=== PATIENT | female | born 1940 | race Caucasian/White ===

== ENCOUNTER 2017-01-23 14:06 | Inpatient (IN) | payer OTHER ==
--- NOTE | 2017-01-23 14:28 | EDPHY ---
H & P Stated Complaint: starting at 1240 decreased responsiveness and fatigue Time Seen by Provider: 01/23/17 14:14 - Personal History Current Tetanus/Diphtheria Vaccine: Unsure - Medical/Surgical History Hx Chronic Respiratory Disease: Yes Hx Diabetes: Yes Hx Cardiac Disease: No Hx Renal Disease: No Hx Cirrhosis: No Hx Alcoholism: No Hx HIV/AIDS: No Hx Splenectomy or Spleen Trauma: No Other PMH: DM insulin dependent, COPD, osteoporosis. PSH: pancreas removed, choly, R hip surgery Constitutional: Initial Vital Signs Temperature (C) 36.6 C 01/23/17 14:16 Heart Rate 70 01/23/17 14:16 Respiratory Rate 20 01/23/17 14:16 Blood Pressure 175/75 H 01/23/17 14:16 O2 Sat (%) 96 01/23/17 14:16 O2 Delivery Mode Room Air Allergies/Adverse Reactions: fentanyl Allergy (Verified 01/23/17 14:16) Home Medications: Medication Instructions Recorded Flurbiprofen 0.03% [Ocufen 0.03%] 1 drop EACHEYE QID #1 bottle 01/23/17 Medical Decision Making - Diagnostics Imaging Results: Imaging Impressions Head CT 01/23/17 14:24 Impression: 1. No acute intracranial findings. If symptoms persist and clinical suspicion warrants, consider MRI. 2. Diffuse cerebral atrophy with periventricular and subcortical low attenuation consistent with chronic microvascular ischemic gliosis. Findings discussed with Mio Curiel MD 01/23/2017 at 15:43. Imaging: Discussed imaging studies w/ scallop binder Radiologist, I viewed and interpreted images myself ED Course/Re-evaluation: CHIEF COMPLAINT: AMS HISTORY OF PRESENT ILLNESS: The patient is a 76 y/o female arriving with her niece for altered mental status onset around 12:30, about 2 hours ago. She has a medical history that includes COPD and diabetes. She is visiting from [place] and arrived here on Tuesday. Her niece reports she is generally not very healthy, but has been doing well and came here to relax before her upcoming hip surgery in one month. This morning, the patient began to complain of double vision. She then had difficulty walking and with speech. Her niece gave her juice and sugar thinking she may have a BGL problem. Niece denies any symptoms of recent illness. The patient is unable to contribute to history due to AMS. REVIEW OF SYSTEMS: Unobtainable secondary to patient condition. PHYSICAL EXAM: HR, BP, O2 Sat, RR. Temp noted General Appearance: Somnolent and difficult to rouse, difficulty following commands, no obvious focal deficits. Head: Atraumatic without scalp tenderness or obvious injury Eyes: Pupils equal, round, reactive to light and accommodation, EOMI, no trauma , no injection. Ears: Clear bilaterally, no perforation, normal landmarks Nose: Atraumatic, no rhinorrhea, clear. Throat: There is no erythema or exudates, no lesions, normal tonsils, mucus membranes moist. Neck: Supple, non-tender, no lymphadenopathy. Respiratory: No retractions, no distress, no wheezes, and no accessory muscle use. Lungs are clear to auscultation bilaterally. Cardiovascular: Regular rate and rhythm, no murmurs, rubs, or gallops. Good capillary refill all extremities. Gastrointestinal: Abdomen is soft, non-tender, non-distended, no masses, no rebound, no guarding, no peritoneal signs. Musculoskeletal: Normal active ROM of all extremities, atraumatic. Neurological: Somnolent, has difficulty follow commands, no obvious focal deficits Skin: No rashes, good turgor, no nodules on palpation. PAST MEDICAL HISTORY: COPD, diabetes PAST SURGICAL HISTORY: "a lot of surgeries," right hip surgery, cholecystectomy , "no pancreas" SOCIAL HISTORY: Niece at bedside. Visiting from [place]. DIAGNOSTICS/PROCEDURES/CRITICAL CARE TIME: EKG: Sinus rhythm rate [address]: negative for acute process. DIFFERENTIAL DIAGNOSIS: The differential diagnosis for the patient's altered mental status included but was not limited to hypoglycemia, infectious process, electrolyte abnormality, head injury, neurologic process, anemia, cardiac process, and intoxicants. MEDICAL DECISION MAKING: This is a 76 y/o female with a history of diabetes and COPD who presents with a 2-hour history of altered mentation. She is not able to follow commands nor contribute to history. No obvious focal deficits or trauma. Her initial ISTAT BGL here is >350. Plan for insulin drip, IV, labs, EKG, and head CT. Patient has an elevated potassium that is likely due to hemolysis from difficult IV access. We have been unable to get access to her medication record from her pharmacy as family members cannot provide this information. BGL over 500. Head CT negative. 1552: Reassessed patient. She is snoring and not easy to rouse. Her vitals remain normal. I have no obvious cause for her symptoms as her head CT, EKG, and labs are unremarkable. I would not expect hyperglycemia to cause this mental state. There may be some sort of intoxicant on board. UA and urine tox is still pending. Patient will require admission. Spoke with hospitalist service. Dr. Bui accepts admission to step down unit. - Data Points Laboratory Results: Laboratory Results 01/23/17 14:48 01/23/17 14:48 01/23/17 01/23/17 01/23/17 14:48 14:48 14:44 WBC 7.15 10^3/uL 10^3/uL (3.80-9.50) RBC 4.93 10^6/uL 10^6/uL (4.18-5.33) Hgb 15.2 g/dL g/dL (12.6-16.3) POC Hgb 16.7 gm/dL H gm/dL (12.6-16.3) Hct 44.7 % % (38.0-47.0) POC Hct 49 % H % (38-47) MCV 90.7 fL fL (81.5-99.8) MCH 30.8 pg pg (27.9-34.1) MCHC 34.0 g/dL g/dL (32.4-36.7) RDW 16.0 % H % (11.5-15.2) Plt Count 273 10^3/uL 10^3/uL (150-400) MPV 9.9 fL fL (8.7-11.7) Neut % (Auto) 77.9 % H % (39.3-74.2) Lymph % (Auto) 15.0 % % (15.0-45.0) Maverick % (Auto) 5.9 % % (4.5-13.0) Eos % (Auto) 0.1 % L % (0.6-7.6) Baso % (Auto) 0.7 % % (0.3-1.7) Nucleat RBC Rel Count 0.0 % % (0.0-0.2) Absolute Neuts (auto) 5.57 10^3/uL 10^3/uL (1.70-6.50) Absolute Lymphs (auto) 1.07 10^3/uL 10^3/uL (1.00-3.00) Absolute Monos (auto) 0.42 10^3/uL 10^3/uL (0.30-0.80) Absolute Eos (auto) 0.01 10^3/uL L 10^3/uL (0.03-0.40) Absolute Basos (auto) 0.05 10^3/uL 10^3/uL (0.02-0.10) Absolute Nucleated RBC 0.00 10^3/uL 10^3/uL (0-0.01) Immature Gran % 0.4 % % (0.0-1.1) Immature Gran # 0.03 10^3/uL 10^3/uL (0.00-0.10) POC Sodium 136 mEq/L mEq/L (134-144) Sodium 134 mEq/L mEq/L (134-144) POC Potassium 5.5 mEq/L H mEq/L (3.3-5.0) Potassium 6.2 mEq/L H mEq/L (3.5-5.2) POC Chloride 105 mEq/L mEq/L (97-110) Chloride 105 mEq/L mEq/L (97-110) Carbon Dioxide 16 mEq/l L mEq/l (22-31) Anion Gap 13 mEq/L mEq/L (8-16) POC BUN 23 mg/dL mg/dL (7-23) BUN 20 mg/dL mg/dL (7-23) Creatinine 1.0 mg/dL mg/dL (0.6-1.0) POC Creatinine 1.0 mg/dL mg/dL (0.6-1.0) Estimated GFR 54 Glucose 514 mg/dL H* mg/dL (70-100) POC Glucose 472 mg/dL H mg/dL (70-100) Calcium 10.0 mg/dL mg/dL (8.5-10.4) Troponin I < 0.012 ng/mL ng/mL (0.000-0.034) Beta-Hydroxybutyrate 0.76 mmol/L H mmol/L (0.02-0.27) Specimen Hemolysis 198 Medications Given: Insulin Human Regular 100 unit / Miscellaneous Medication 1 ea/ Sodium Chloride 101 mls @ 6 mls/hr IV EDNOW ONE PRN Reason: Protocol Stop: 01/24/17 07:57 Last Admin: 01/23/17 15:43 Dose: 101 mls Discontinued Medications Sodium Chloride (Ns) 1,000 mls @ 0 mls/hr IV ONCE ONE; Wide Open PRN Reason: Protocol Stop: 01/23/17 15:09 Last Admin: 01/23/17 15:29 Dose: 1,000 mls Insulin Human Regular (Humulin R) 10 unit IVP EDNOW ONE Stop: 01/23/17 15:09 Last Admin: 01/23/17 15:30 Dose: 10 units Point of Care Test Results: 01/23/17 14:44 POC Sodium 136 POC Potassium 5.5 H POC Chloride 105 POC BUN 23 POC Creatinine 1.0 POC Glucose 472 H Departure - Departure Disposition: [facility] Inpatient Acute Clinical Impression: Hyperglycemia Altered mental status Qualifiers: Altered mental status type: somnolence Qualified Code(s): R40.0 - Somnolence Condition: Fair Referrals: JACKI,UNKNOWN [Other] - As per Instructions Prescriptions: Flurbiprofen 0.03% [Ocufen 0.03%] 1 drop EACHEYE QID #1 bottle Report Scribed for: Mio Curiel Report Scribed by: Florencia Shepherd Date of Report: 01/23/17 Time of Report: 14:28
[2017-01-23 14:59] LABS: % IMMATURE GRANULYOCYTES 0.4 % (0.0-1.1); ABSOLUTE IMMATURE GRANULOCYTES 0.03 10^3/uL (0.00-0.10); ADD DIFF? NO; ADD MORPH? NO; ADD SCAN? NO; ATYPICAL LYMPHOCYTE FLAG 0 (0-99); FRAGMENT RBC FLAG 0 (0-99); HEMATOCRIT 44.7 % (38.0-47.0); HEMOGLOBIN 15.2 g/dL (12.6-16.3); LEFT SHIFT FLG 0 (0-99); LIPEMIA HEMOLYSIS FLAG 90 (0-99); MEAN CELL HEMOGLOBIN 30.8 pg (27.9-34.1); MEAN CELL VOLUME 90.7 fL (81.5-99.8); MEAN PLATELET VOLUME 9.9 fL (8.7-11.7); PLATELET CLUMPS FLAG 0 (0-99); PLATELET COUNT 273 10^3/uL (150-400); RED BLOOD CELL COUNT 4.93 10^6/uL (4.18-5.33)
--- NOTE | 2017-01-23 15:01 | CPEKG ---
Heart Rate: 55 RR Interval: 1091 P-R Interval: 208 QRSD Interval: 90 QT Interval: 444 QTC Interval: 425 P [place]: 82 QRS [place]: 5 T Wave [place]: 35 EKG Severity - NORMAL ECG - EKG Impression: SINUS RHYTHM Electronically Signed By: Mio Curiel 23-Jan-2017 18:19:15
[2017-01-23] MEDS ORDERED: NS 1,000 ML IV ONE (15:08)
[2017-01-23] MEDS ORDERED: INSULIN REGULAR HUMAN 100 UNIT/ML IVP ONE (15:08)
[2017-01-23] MEDS ORDERED: INSULIN REGULAR HUMAN 100 UNIT, COSIGN. REQUIRED 1 EA in NS 100 ML IV ONE (15:08)
[2017-01-23 15:32] LABS: TROPONIN I < 0.012 ng/mL (0.000-0.034)
[2017-01-23 15:39] LABS: ANION GAP 13 mEq/L (8-16); CARBON DIOXIDE 16 mEq/l (22-31); CHLORIDE 105 mEq/L (97-110); POTASSIUM 6.2 mEq/L (3.5-5.2); SODIUM 134 mEq/L (134-144); SPECIMEN HEMOLYSIS 198
[2017-01-23 15:40] LABS: GLOMERULAR FILTRATION RATE 54
[2017-01-23 15:41] LABS: GLUCOSE 514 mg/dL (70-100)
[2017-01-23 15:43] LABS: B-HYDROXYBUTYRATE 0.76 mmol/L (0.02-0.27)
[2017-01-23 16:29] LABS: COLOR YELLOW; LEUKOCYTE ESTERASE,URINE NEGATIVE (NEGATIVE); NITRITE,URINE NEGATIVE (NEGATIVE)
[2017-01-23] MEDS ORDERED: D50W 25 GM/50 ML SYR IVP PRN (16:44)
[2017-01-23] MEDS ORDERED: NS 1,000 ML IV SCH (16:45)
[2017-01-23] MEDS ORDERED: ALTEPLASE 2 MG VIAL IVP PRN (17:58)
[2017-01-23] MEDS ORDERED: ACETAMINOPHEN 325 MG TAB PO PRN (17:59)
[2017-01-23] MEDS ORDERED: HYDROmorphONE/DILAUDID 1 MG/ML INJ IVP PRN (17:59)
[2017-01-23] MEDS: INSULIN LISPRO 100 UNIT/ML SC SCH (18:43)
[2017-01-23 18:48] LABS: ALBUMIN 2.5 g/dL (3.5-5.0); BILIRUBIN,TOTAL 0.4 mg/dL (0.1-1.4); BILIRUBIN-CONJUGATED 0.3 mg/dL (0.0-0.5); BILIRUBIN-UNCONJUGATED 0.1 mg/dL (0.0-1.1); TOTAL PROTEIN 4.6 g/dL (6.3-8.2)
[2017-01-23] MEDS ORDERED: ACETAMINOPHEN 650 MG SUPP PR PRN (19:09)
[2017-01-23] MEDS ORDERED: NALOXONE HCL 0.4 MG/ML INJ IVP PRN (19:09)
[2017-01-23 19:54] LABS: BASE EXCESS -6.3 mEq/L (-2.5-2.5); BICARBONATE 19 mEq/L (22-26); MEASURED OXYGEN SATURATION 97 % (92-95); PCO2 37 mmHg (34-38); PO2 95 mmHg (65-75); TCO2 20 mEq/L (23-27)
[2017-01-23] MEDS ORDERED: D10W 250 ML PRN HYPOGLYCEMIA IV (20:30)
--- NOTE | 2017-01-23 21:45 | GHP ---
[f rep st] HISTORY AND PHYSICAL DATE OF ADMISSION: 01/23/2017 CHIEF COMPLAINT: Altered mental status. HISTORY: This is a 76-year-old female currently visiting from [place], brought in by family aft er she was found to be unresponsive. Patient has a history that includes type 1 diabetes, occurring status post a partial pancreatectomy, as well as COPD and recurrent pneumonia. According to family, she was in her usual state of health, which is noted to be always somewhat poor. She is here visitin suzy marks niece and yesterday apparently had a very good day walking all around town without any issues. T his morning, she was noted to be a little bit tired and niece left to do some errands and when she re turned, patient was found to be quite somnolent on the couch. Niece attempted to waken her and had d ifficulty. Niece was able to check oxygen at home and it was found to be 95%. She did attempt to ch luigi her blood sugar at home, but continued to get an error message. At that point, she made a decisi on to bring her to the hospital. On arrival in the ER, she was found to be significantly obtunded an d essentially unresponsive. Blood sugar on arrival was in the 500 range. At the time of my evaluati on, patient has snoring respirations and is responding only to painful stimuli. Niece was present at the bedside and I was able to speak to patient's son over the phone in order to obtain the majority of this history. PAST MEDICAL HISTORY: 1. Type 1 diabetes on chronic insulin. 2. Chronic pain with continuous narcotic use and dependency. 3. COPD. 4. Malnutrition. 5. History of steroid induced psychosis. PAST SURGICAL HISTORY: Pancreatectomy. FAMILY HISTORY: Unremarkable per family. SOCIAL HISTORY: Patient is a current daily tobacco user and has likely 50+ pack-year smoking history . No significant alcohol or drug use per family other than prescription drugs. Son does not believe that she has ever intentionally abused her prescription drugs, but does believe that she has had iss ues with inadvertently taking too many of them in the past. REVIEW OF SYSTEMS: Unobtainable secondary to patient's mental status. HOME MEDICATIONS: This list needs to be confirmed but includes: 1. Ventolin. 2. Lyrica. 3. Xanax. 4. Pancreatic enzymes. 5. Insulin. 6. Dilaudid. 7. Zofran. 8. Losartan. 9. Trazodone. 10. Pravastatin. 11. Mirtazapine. ALLERGIES: Fentanyl. PHYSICAL EXAMINATION: VITAL SIGNS: Bp 116/44, heart rate 59, respiratory rate 16, O2 sats 99% on 2 L . GENERAL APPEARANCE: This is a chronically ill-appearing female. She is unarousable. She has sno ring respirations. EYES: Anicteric. Pupils are constricted, equal and reactive to light. Orophary nx was clear. Mucous membranes are tacky. HEART: Sounds are regular without murmurs, rubs, or almonte ps. LUNGS: Sound clear, though she does again have some snoring respirations present. ABDOMEN: So ft, nontender, nondistended. EXTREMITIES: Without clubbing, cyanosis or edema. SKIN: Warm, dry, well perfused. NEURO/PSYCH: Kg lara is largely unarousable, though she will withdraw to pain. She was noted to be moving spontaneo usly on occasion as well. CLINICAL DATA: White blood cell count of 7, hematocrit 44.7, platelets of 273. Blood gas with a pH of 7.3, pCO2 of 20, pO2 of 95, potassium initially at 6.2, but this was a hemolyzed sample. Glucose at 514, later trended down to 64. Serum osmolality at 300. LFTs remarkable only for a total protein of 4.6, and an albumin of 2.5, initial beta hydroxybutyrate of 0.76, initial troponin is less than 0 .012. Troponin showing 1+ ketones and U-tox showing benzodiazepines. Head CT: Personally reviewed and interpreted, shows no acute intracranial findings. Chest x-ray: Personally reviewed and interpr eted, shows nothing acute. There is a central line in place. EKG, personally reviewed and interpreted, shows sinus rhythm. ASSESSMENT AND PLAN: This is a 76-year-old female, currently visiting from out of town, past medical history of diabetes, chronic obstructive pulmonary disease and recurrent pneumonia presenting with a cute encephalopathy. 1. Acute encephalopathy. At this point, somewhat unclear what led to her current state. Head CT is unremarkable. Labs are not overly impressive in terms of a metabolic derangement. Nothing obvious in terms of an infectious workup. She did present with significantly elevated glucose in considerati on for HHS, but her glucoses have corrected rapidly and she does not show any signs of improvement. Another consideration would be for inadvertent drug overdose, especially in the setting of polypharma cy and multiple sedating medications on board including benzos, Lyrica, mirtazapine, trazodone and Di laudid. Will give a trial of Narcan to see if this improves her mental status at all. She is protec ting her airway and is being monitored in ICU. 2. Hyperosmolar hyperglycemic state. Patient presenting with a plasma osmolality of 300 and a signi ficantly elevated glucose of 500. Again, this could be contributing to her mental status changes alt gurpreet her mental status is not improving despite improved glucoses. Patient has been started on insu diego drip, though this has been put on hold due to most recent hypoglycemia. Will likely treat from h ere on out with subcu insulin as needed. 3. Chronic pain with continuous narcotic use and dependency. The patient is on Dilaudid 4 mg 4 time s a day at home. Again, unclear if patient had inadvertent overdose or simply polypharmacy related e vent. For now, will hold centrally acting medications as we are able. I suspect she will need to be resumed on her pain medications, etc., soon or will experience withdrawal. Will provide Ativan p.r. n. agitation, although currently she is not requiring it. 4. Chronic obstructive pulmonary disease. Per family, she is not chronically on oxygen. She has monteiro d issues with recurrent pneumonia. Currently lungs sound clear and nothing significant noted on x-ra y. Will repeat x-ray in the morning in case something is blossoming. Holding off on antibiotics for the time being. She has not had significant CO2 retention by blood gas. 5. Malnutrition. Patient has a BMI of 20. Per family, she has had issues with weight loss and poor p.o. intake. Will ask for a dietary consult. She is n.p.o. for now pending improvement of her ment al status, however. 6. Disposition, inpatient status. Patient is high risk requiring ICU level care. Patient is new to my care. Old records reviewed. Summary is as per HPI and past medical history. C are plan reviewed with patient's niece, present at bedside, and the patient's son over the phone. Greater than 60 minutes of critical care time were spent in addition to usual admission time. This w as spent in reviewing labs, imaging, and creating treatment plan and conferring with ER doc. /[id number]/MODL
[2017-01-24 02:14] LABS: HEMOGLOBIN A1C 8.7 % (4.0-6.0)
[2017-01-24] MEDS: LORazepam 2 MG/ML INJ IVP PRN ×3 (02:47→17:34)
[2017-01-24 04:44] LABS: % IMMATURE GRANULYOCYTES 0.4 % (0.0-1.1); ABSOLUTE IMMATURE GRANULOCYTES 0.03 10^3/uL (0.00-0.10); ADD DIFF? NO; ADD MORPH? NO; ADD SCAN? YES; ATYPICAL LYMPHOCYTE FLAG 0 (0-99); FRAGMENT RBC FLAG 0 (0-99); HEMATOCRIT 42.2 % (38.0-47.0); HEMOGLOBIN 14.3 g/dL (12.6-16.3); LEFT SHIFT FLG 0 (0-99); LIPEMIA HEMOLYSIS FLAG 90 (0-99); MEAN CELL HEMOGLOBIN 30.2 pg (27.9-34.1); MEAN CELL HEMOGLOBIN CONCENTR. 33.9 g/dL (32.4-36.7); MEAN PLATELET VOLUME 9.8 fL (8.7-11.7); PLATELET COUNT 221 10^3/uL (150-400); RED BLOOD CELL COUNT 4.74 10^6/uL (4.18-5.33); RED CELL DISTRIBUTION WIDTH 15.7 % (11.5-15.2)
[2017-01-24 04:53] LABS: PLATELET CLUMPS FLAG 100 (0-99)
[2017-01-24 04:58] LABS: ANION GAP 12 mEq/L (8-16); CALCIUM 9.3 mg/dL (8.5-10.4); CARBON DIOXIDE 16 mEq/l (22-31); CHLORIDE 110 mEq/L (97-110); CREATININE 0.8 mg/dL (0.6-1.0); GLOMERULAR FILTRATION RATE > 60; GLUCOSE 255 mg/dL (70-100); MAGNESIUM 1.8 mg/dL (1.6-2.3); POTASSIUM 3.7 mEq/L (3.5-5.2); SODIUM 138 mEq/L (134-144)
[2017-01-24 05:42] LABS: SCAN NEGATIVE
[2017-01-24] MEDS: INSULIN LISPRO 100 UNIT/ML SC SCH ×3 (06:39→19:33)
--- NOTE | 2017-01-24 08:21 | WOCRNPDOC ---
[facility] Advanced Assessment Note - Skin Integrity Problem, Advanced Assess Coccyx Pressure Injury Dressing Type: Allevyn Life Integumentary Issue Intervention: Visualized Under Dressing Wound Bed Constitution: Healed Skin Integrity Problem Comment: No erythema noted. No pressure injury present. Left Elbow Scab Dressing Type: Allevyn Life Dressing Description: Clean/Dry, Intact Exudate Amount: Scant Exudate Characteristic(s): Sanguinous Integumentary Issue Intervention: Visualized Under Dressing Wound Bed Constitution: Unstable Eschar Site Measurement - Head-to-Toe Length X Width X Depth (cm): 0.9x0.6x0.1 Pressure Injury Stage: Unstageable Skin Integrity Problem Comment: Older wound of unclear etiology but may be mixed and/or purely pressure related due to location over olecranon process. Wound mirrors wound on right lateral malleolus in that it is dried out and necrotic and approximatly the same age. Will treat with wound gel and allevyn life. Will round again late this week/early next week. Right Ankle Pressure Injury Dressing Type: Allevyn Life Dressing Description: Clean/Dry, Intact Exudate Amount: Scant Exudate Characteristic(s): Sanguinopurulent Integumentary Issue Intervention: Visualized Under Dressing Site Measurement - Head-to-Toe Length X Width X Depth (cm): 0.9x0.9x0.2 Pressure Injury Stage: Unstageable Pressure Injury Present on Admit: Yes Skin Integrity Problem Comment: A identical wound on left ankle is healed and has scar tissue. This wound is too dry thereby necrosing. Will recheck at end of week/early next week. ADALID Napier in room for consult.
[2017-01-24] MEDS: ENOXAPARIN 40 MG/0.4 ML SYR SC SCH (08:56)
--- NOTE | 2017-01-24 10:50 | PDMN ---
Medical Necessity Medical necessity: Patient meets INPT criteria per physician note and MCG Systemic or Infectious Condition GRG - (acute encephalopathy: found unresponsive by family; hyperosmolar hyperglycemia: BG 500/plasma osmolality 300 ; chronic pain w/cont narcotic use/dependency/poss unintentional OD; hx Type I DM, COPD, recurrent pneumonia, s/p partial pancreatectomy; anticipated LOS > 2 midnights for ICU monitoring, IV hydration, Narcan trial, further eval and care.)
--- NOTE | 2017-01-24 11:46 | ASMTCMCOM ---
CM Note CM Note Notes: 76 year old female [place] visiting niece in [place], admitted for AMS, Hyperglycemia. Patient has a hx of DM-1, Chronic pain-narc dependent, COPD, Malnutrition. Concern that patient might have taken too many or confused medications and became unresponsive which then lead to her admission. CM to follow for discharge needs. Date Signed: 01/24/2017 11:46 AM Electronically Signed By:Venice Gonzalez LCSW
[2017-01-24] MEDS ORDERED: LIPASE 12,000/AMYLASE/PROTEASE (CREON) 1 CAP PO PRN (16:01)
--- NOTE | 2017-01-24 16:07 | HOSPPROG ---
Hospitalist Progress Note Assessment/Plan: * Metabolic encephalopathy -medical work-up unremarkable -suspect med effect - hold all sedating meds -minimal improvement - check MRI brain -? benzo withdrawal * DM 1 -resume long acting insulin + SSI * Pancreatic insufficiency s/p pancreatectomy -restart enzymes when taking PO * COPD with ongoing tobacco dependence * Chronic pain with continuous narcotic dependency Subjective: Still very confused, hallucinating Objective: Vital Signs Temp Pulse Resp BP Pulse Ox 36.7 C 53 L 20 135/53 H 99 01/24/17 11:33 01/24/17 11:33 01/24/17 11:33 01/24/17 11:33 01/24/17 11:33 Laboratory Results 01/24/17 04:30 01/24/17 04:30 01/23/17 01/24/17 01/25/17 05:59 05:59 05:59 Intake Total 1826 1375 Output Total 875 250 Balance 951 1125 I spoke with her PCP in [place] Dr Kwan Gayle - he gave her Diamox for altitude prior to travel - Time Spent With Patient Time Spent with Patient: greater than 35 minutes Time Spent with Patient: Greater than 35 minutes spent on this patients care, greater than 50% of time spent counseling, educating, and coordinating care regarding the above mentioned plan. - Physical Exam Constitutional: no apparent distress, appears nourished, not in pain Cardiovascular: regular rate and rhythym, no murmur, rub, or gallop Respiratory: no respiratory distress, no rales or rhonchi, clear to auscultation Gastrointestinal: normoactive bowel sounds, soft, non-tender abdomen, no palpable masses Skin: no rashes or abrasions, no fluctuance, no induration Neurologic: No AAOx3 Psychiatric: encephalopathic, agitated, poor insight, poor judgement, poor memory ICD10 Worksheet Patient Problems: Problems Problem Status Onset Altered mental status Acute Hyperglycemia Acute
[2017-01-24] MEDS ORDERED: ALPRAZolam 0.25 MG TAB PO PRN (16:08)
[2017-01-24] MEDS ORDERED: INSULIN GLARGINE HUM REC ANLOG 20 UNIT SQ SCH (16:15)
[2017-01-24] MEDS: LIPASE 12,000/AMYLASE/PROTEASE (CREON) 1 CAP PO SCH (19:33)
[2017-01-25] MEDS ORDERED: INSULIN LISPRO 100 UNIT/ML SC ONE (00:12)
[2017-01-25 04:52] LABS: % IMMATURE GRANULYOCYTES 0.6 % (0.0-1.1); ABSOLUTE IMMATURE GRANULOCYTES 0.08 10^3/uL (0.00-0.10); ADD DIFF? NO; ADD MORPH? NO; ADD SCAN? NO; ATYPICAL LYMPHOCYTE FLAG 0 (0-99); FRAGMENT RBC FLAG 0 (0-99); HEMATOCRIT 37.2 % (38.0-47.0); HEMOGLOBIN 12.7 g/dL (12.6-16.3); LEFT SHIFT FLG 0 (0-99); LIPEMIA HEMOLYSIS FLAG 90 (0-99); MEAN CELL HEMOGLOBIN 30.3 pg (27.9-34.1); MEAN CELL HEMOGLOBIN CONCENTR. 34.1 g/dL (32.4-36.7); MEAN CELL VOLUME 88.8 fL (81.5-99.8); MEAN PLATELET VOLUME 9.4 fL (8.7-11.7); PLATELET CLUMPS FLAG 10 (0-99); PLATELET COUNT 239 10^3/uL (150-400); RED BLOOD CELL COUNT 4.19 10^6/uL (4.18-5.33); RED CELL DISTRIBUTION WIDTH 15.6 % (11.5-15.2)
[2017-01-25 04:56] LABS: ANION GAP 13 mEq/L (8-16); CALCIUM 8.1 mg/dL (8.5-10.4); CARBON DIOXIDE 13 mEq/l (22-31); CHLORIDE 120 mEq/L (97-110); CREATININE 0.8 mg/dL (0.6-1.0); GLOMERULAR FILTRATION RATE > 60; GLUCOSE 184 mg/dL (70-100); SODIUM 146 mEq/L (134-144)
[2017-01-25] MEDS: ONDANSETRON 4 MG/2 ML VIAL IVP PRN (05:55)
[2017-01-25] MEDS: LOSARTAN POTASSIUM 50 MG TAB PO SCH ×2 (08:03→10:47)
[2017-01-25] MEDS: CALCITRIOL 0.25 MCG CAP PO SCH ×2 (08:03→10:46)
[2017-01-25] MEDS: LIPASE 12,000/AMYLASE/PROTEASE (CREON) 1 CAP PO SCH ×3 (08:03→18:15)
[2017-01-25] MEDS: PRAVASTATIN SODIUM 20 MG TAB PO SCH ×2 (08:03→10:46)
[2017-01-25] MEDS ORDERED: PROTOCOL POTASSIUM 1 DOSE MISC PRN (08:54)
[2017-01-25] MEDS: Umeclidinium Brm/Vilanterol Tr [Anoro Ellipta 62.5-25 Mcg Inh IH SCH (08:57)
[2017-01-25] MEDS: ENOXAPARIN 40 MG/0.4 ML SYR SC SCH (10:41)
[2017-01-25] MEDS: INSULIN GLARGINE 100 UNIT/ML VIAL SC SCH (10:41)
[2017-01-25] MEDS: INSULIN LISPRO 100 UNIT/ML SC SCH ×4 (10:43→20:46)
[2017-01-25] MEDS ORDERED: POTASSIUM CL 10 MEQ TAB PO ONE ×3 (12:01→20:20)
--- NOTE | 2017-01-25 13:58 | HOSPPROG ---
Hospitalist Progress Note Assessment/Plan: * C Diff -start PO Vanco * Metabolic encephalopathy - due to infection -improved * DM 1 -resume Lantus * Pancreatic insufficiency s/p pancreatectomy -restart enzymes * COPD with ongoing tobacco dependence * Chronic pain with continuous narcotic dependency -resume home med regimen Subjective: c/o upset stomach. Confused Objective: Vital Signs Temp Pulse Resp BP Pulse Ox 36.8 C 50 L 16 154/62 H 97 01/25/17 11:56 01/25/17 11:56 01/25/17 07:35 01/25/17 11:56 01/25/17 11:56 Microbiology 01/24/17 15:45 Gastrointestinal Tract Panel (PCR) - Final Stool Clostridium Difficile Detected Laboratory Results 01/25/17 04:35 01/25/17 04:35 01/24/17 01/25/17 01/26/17 05:59 05:59 05:59 Intake Total 1826 1375 1636 Output Total 875 279 102 Balance 951 1096 1534 MRI brain - negative - Physical Exam Constitutional: no apparent distress, appears nourished, not in pain Cardiovascular: regular rate and rhythym, no murmur, rub, or gallop Respiratory: no respiratory distress, no rales or rhonchi, clear to auscultation Gastrointestinal: normoactive bowel sounds, soft, non-tender abdomen, no palpable masses Skin: no rashes or abrasions, no fluctuance, no induration Neurologic: No AAOx3 Psychiatric: interacting appropriately (much improved overall, makes sense even though she gets off track), encephalopathic, poor insight, poor judgement, poor memory, No agitated ICD10 Worksheet Patient Problems: Problems Problem Status Onset Altered mental status Acute Clostridium difficile infection Acute ~01/24/17 Hyperglycemia Acute
[2017-01-25] MEDS ORDERED: INSULIN GLARGINE 100 UNITS/ML SYRINGE SC ONE (16:06)
[2017-01-25] MEDS: VANCOMYCIN 125 MG/2.5 ML UDL PO SCH ×2 (16:22→20:29)
[2017-01-25] MEDS: ALBUTEROL 60 PUFFS/8 GM MDI IH PRN (17:16)
[2017-01-25] MEDS: HYDROmorphONE/DILAUDID 4 MG TAB PO PRN (17:18)
[2017-01-25 17:54] LABS: POTASSIUM 3.3 mEq/L (3.5-5.2)
[2017-01-26] MEDS: hydrALAZINE 20 MG/ML VIAL IVP PRN ×2 (04:46→12:12)
[2017-01-26] MEDS: VANCOMYCIN 125 MG/2.5 ML UDL PO SCH ×4 (04:52→21:32)
[2017-01-26 05:01] LABS: % IMMATURE GRANULYOCYTES 0.3 % (0.0-1.1); ABSOLUTE IMMATURE GRANULOCYTES 0.04 10^3/uL (0.00-0.10); ADD DIFF? NO; ADD MORPH? NO; ADD SCAN? NO; ATYPICAL LYMPHOCYTE FLAG 0 (0-99); FRAGMENT RBC FLAG 0 (0-99); HEMATOCRIT 35.6 % (38.0-47.0); HEMOGLOBIN 12.5 g/dL (12.6-16.3); LEFT SHIFT FLG 0 (0-99); LIPEMIA HEMOLYSIS FLAG 90 (0-99); MEAN CELL HEMOGLOBIN 30.4 pg (27.9-34.1); MEAN CELL HEMOGLOBIN CONCENTR. 35.1 g/dL (32.4-36.7); MEAN CELL VOLUME 86.6 fL (81.5-99.8); MEAN PLATELET VOLUME 9.7 fL (8.7-11.7); PLATELET CLUMPS FLAG 0 (0-99); PLATELET COUNT 206 10^3/uL (150-400); RED BLOOD CELL COUNT 4.11 10^6/uL (4.18-5.33); RED CELL DISTRIBUTION WIDTH 15.4 % (11.5-15.2)
[2017-01-26 05:22] LABS: ANION GAP 10 mEq/L (8-16); CALCIUM 7.9 mg/dL (8.5-10.4); CARBON DIOXIDE 18 mEq/l (22-31); CHLORIDE 118 mEq/L (97-110); CREATININE 0.7 mg/dL (0.6-1.0); GLOMERULAR FILTRATION RATE > 60; GLUCOSE 113 mg/dL (70-100); POTASSIUM 3.3 mEq/L (3.5-5.2); SODIUM 146 mEq/L (134-144)
[2017-01-26] MEDS: INSULIN LISPRO 100 UNIT/ML SC SCH ×4 (08:12→21:26)
[2017-01-26] MEDS: Umeclidinium Brm/Vilanterol Tr [Anoro Ellipta 62.5-25 Mcg Inh IH SCH (09:44)
[2017-01-26] MEDS ORDERED: POTASSIUM CL 10 MEQ TAB PO ONE ×2 (09:52→20:50)
[2017-01-26] MEDS: ENOXAPARIN 40 MG/0.4 ML SYR SC SCH (10:16)
[2017-01-26] MEDS: ONDANSETRON 4 MG/2 ML VIAL IVP PRN ×2 (10:16→15:55)
[2017-01-26] MEDS: HYDROmorphONE/DILAUDID 4 MG TAB PO PRN (10:21)
[2017-01-26] MEDS: LIPASE 12,000/AMYLASE/PROTEASE (CREON) 1 CAP PO SCH ×3 (10:28→17:22)
[2017-01-26] MEDS: CALCITRIOL 0.25 MCG CAP PO SCH (10:28)
[2017-01-26] MEDS: MIRTAZAPINE 15 MG TAB PO SCH (10:29)
[2017-01-26] MEDS: PRAVASTATIN SODIUM 20 MG TAB PO SCH (10:29)
[2017-01-26] MEDS: LOSARTAN POTASSIUM 50 MG TAB PO SCH (10:29)
[2017-01-26] MEDS: PROMETHAZINE HCL 25 MG/ML INJ IVP PRN (12:12)
[2017-01-26] MEDS: INSULIN GLARGINE 100 UNIT/ML VIAL SC SCH (12:16)
--- NOTE | 2017-01-26 14:10 | HOSPPROG ---
Hospitalist Progress Note Assessment/Plan: * C Diff -PO Vanco * Metabolic encephalopathy - due to infection -improving slowly * DM 1 -Lantus * Pancreatic insufficiency s/p pancreatectomy -Creon with meals * COPD with ongoing tobacco dependence * Chronic pain with continuous narcotic dependency -resume home meds * Hypernatremia -restart IVF -encourage PO fluids Subjective: 3 BM overnight, doesnt feel well Objective: Vital Signs Temp Pulse Resp BP Pulse Ox 37.2 C 56 L 16 181/60 H 95 01/26/17 12:00 01/26/17 12:00 01/26/17 12:00 01/26/17 12:12 01/26/17 12:00 Laboratory Results 01/26/17 04:45 01/26/17 04:45 01/25/17 01/26/17 01/27/17 05:59 05:59 05:59 Intake Total 1375 2736 500 Output Total 279 252 Balance 1096 2484 500 - Physical Exam Constitutional: no apparent distress, appears nourished, not in pain Cardiovascular: regular rate and rhythym, no murmur, rub, or gallop Respiratory: no respiratory distress, no rales or rhonchi, clear to auscultation Gastrointestinal: normoactive bowel sounds, soft, non-tender abdomen, no palpable masses Skin: no rashes or abrasions, no fluctuance, no induration Neurologic: weakness, No AAOx3 Psychiatric: encephalopathic, poor insight, poor judgement, poor memory, No interacting appropriately, No agitated ICD10 Worksheet Patient Problems: Problems Problem Status Onset Altered mental status Acute Clostridium difficile infection Acute ~01/24/17 Hyperglycemia Acute
[2017-01-26] MEDS ORDERED: 1/2 NS 1,000 ML IV SCH (14:15)
--- NOTE | 2017-01-26 15:53 | ASMTCMCOM ---
CM Note CM Note Notes: Spoke w/RN, pt not feeling well, has Cdiff and some mild confusion. CM to speak w/niece Zara [phone] about POC, still a few days out from [place], RICARDO w/f. Date Signed: 01/26/2017 03:52 PM Electronically Signed By:Romy Pizano RN
[2017-01-26] MEDS: D5W 1/2 NS 1,000 ML IV SCH (18:46)
[2017-01-27] MEDS: PREGABALIN 75 MG CAP PO PRN ×2 (05:10→19:53)
[2017-01-27] MEDS: VANCOMYCIN 125 MG/2.5 ML UDL PO SCH ×4 (05:10→19:53)
[2017-01-27 06:03] LABS: % IMMATURE GRANULYOCYTES 0.4 % (0.0-1.1); ABSOLUTE IMMATURE GRANULOCYTES 0.04 10^3/uL (0.00-0.10); ADD DIFF? NO; ADD MORPH? NO; ADD SCAN? NO; ATYPICAL LYMPHOCYTE FLAG 10 (0-99); FRAGMENT RBC FLAG 0 (0-99); HEMATOCRIT 36.5 % (38.0-47.0); HEMOGLOBIN 13.3 g/dL (12.6-16.3); LEFT SHIFT FLG 0 (0-99); LIPEMIA HEMOLYSIS FLAG 90 (0-99); MEAN CELL HEMOGLOBIN 30.9 pg (27.9-34.1); MEAN CELL HEMOGLOBIN CONCENTR. 36.4 g/dL (32.4-36.7); MEAN CELL VOLUME 84.7 fL (81.5-99.8); MEAN PLATELET VOLUME 9.6 fL (8.7-11.7); PLATELET CLUMPS FLAG 10 (0-99); PLATELET COUNT 176 10^3/uL (150-400); RED BLOOD CELL COUNT 4.31 10^6/uL (4.18-5.33); RED CELL DISTRIBUTION WIDTH 15.5 % (11.5-15.2)
[2017-01-27 06:22] LABS: ANION GAP 8 mEq/L (8-16); CALCIUM 7.6 mg/dL (8.5-10.4); CARBON DIOXIDE 21 mEq/l (22-31); CHLORIDE 112 mEq/L (97-110); CREATININE 0.6 mg/dL (0.6-1.0); GLOMERULAR FILTRATION RATE > 60; GLUCOSE 160 mg/dL (70-100); POTASSIUM 3.3 mEq/L (3.5-5.2); SODIUM 141 mEq/L (134-144)
[2017-01-27] MEDS ORDERED: POTASSIUM CL 10 MEQ TAB PO ONE ×3 (06:57→21:08)
[2017-01-27] MEDS: LIPASE 12,000/AMYLASE/PROTEASE (CREON) 1 CAP PO SCH ×3 (08:01→17:22)
[2017-01-27] MEDS: LOSARTAN POTASSIUM 50 MG TAB PO SCH (08:02)
[2017-01-27] MEDS: ENOXAPARIN 40 MG/0.4 ML SYR SC SCH (08:02)
[2017-01-27] MEDS: CALCITRIOL 0.25 MCG CAP PO SCH (08:02)
[2017-01-27] MEDS: MIRTAZAPINE 15 MG TAB PO SCH (08:05)
[2017-01-27] MEDS: PRAVASTATIN SODIUM 20 MG TAB PO SCH (08:06)
[2017-01-27] MEDS: INSULIN LISPRO 100 UNIT/ML SC SCH ×4 (08:20→22:31)
[2017-01-27] MEDS: INSULIN GLARGINE 100 UNIT/ML VIAL SC SCH (08:50)
[2017-01-27] MEDS: ONDANSETRON 4 MG/2 ML VIAL IVP PRN (09:02)
[2017-01-27] MEDS: D5W 1/2 NS 1,000 ML IV SCH (09:04)
[2017-01-27] MEDS: ALBUTEROL 60 PUFFS/8 GM MDI IH PRN (09:25)
[2017-01-27] MEDS: Umeclidinium Brm/Vilanterol Tr [Anoro Ellipta 62.5-25 Mcg Inh IH SCH (09:25)
[2017-01-27] MEDS: PROMETHAZINE HCL 25 MG/ML INJ IVP PRN ×2 (09:58→16:06)
--- NOTE | 2017-01-27 10:36 | ASMTCMCOM ---
CM Note CM Note Notes: Spoke w/MD and niece via phone re; poc. Pt will dc w/niece when medicallly stable and ready to fly, take her to airport and get her to plane via wheelchair and family will pick her up in [place]. Will need form for flight that she missed. CM available for any changes Date Signed: 01/27/2017 10:35 AM Electronically Signed By:Romy Pizano RN
[2017-01-27] MEDS: hydrALAZINE 20 MG/ML VIAL IVP PRN (11:58)
--- NOTE | 2017-01-27 13:55 | WOCRNPDOC ---
WOCRN Advanced Assessment Note - Skin Integrity Problem, Advanced Assess Left Elbow Scab Dressing Type: Allevyn Life, Other Other Dressing Type: stretch net Dressing Description: Clean/Dry, Intact Exudate Amount: Scant Exudate Color: Reddish/Yellow Exudate Characteristic(s): Serosanguinous Integumentary Issue Intervention: Visualized Under Dressing Olga Lidia Wound Tissue: Thin Olga Lidia Wound Swelling: None Wound Bed Color: Red, Yellow Wound Bed Constitution: Granulation Tissue (80%), Loose Slough (20%) Site Odor: None Skin Integrity Problem Comment: Wound on L elbow w/ 20% loose slough and 80% granulation tissue. Friable margins, loosely attached. No periwound swelling or erythema. Continue w/ existing wound care orders. Wound care will follow up with patient again on 02/01. Right Ankle Scab Dressing Type: Allevyn Life Dressing Description: Clean/Dry, Intact Exudate Amount: Scant Exudate Color: Reddish/Yellow Exudate Characteristic(s): Serosanguinous Integumentary Issue Intervention: Visualized Under Dressing Olga Lidia Wound Tissue: Intact, Thin Olga Lidia Wound Swelling: None Wound Bed Color: Red, Yellow Wound Bed Constitution: Granulation Tissue, Loose Slough Wound Edges: Epithelizing Site Odor: None Skin Integrity Problem Comment: Slough noted in medial aspect of wound, easily removed w/ NS and gauze. Granulation tissue throughout, w/ intact wound margins. No periwound swelling or erythema. Wound has distinct, punched out appearance, however patient has a +2 DP pulse and her R foot is warm w/ <3 sec. cap refill. Etiology most likely an abrasion. Continue w/ current wound care orders. Wound care nurse will follow up with patient on Thursday 02/01.
--- NOTE | 2017-01-27 15:14 | HOSPPROG ---
Hospitalist Progress Note Assessment/Plan: * C Diff -PO Vanco * Metabolic encephalopathy - due to infection -improving slowly * DM 1 -Lantus * Pancreatic insufficiency s/p pancreatectomy -Creon with meals * COPD with ongoing tobacco dependence -okay room air * Chronic pain with continuous narcotic dependency -resume home meds * Hypernatremia - resolved Subjective: Still with lots of diarrhea Objective: Vital Signs Temp Pulse Resp BP Pulse Ox 36.4 C 51 L 16 172/72 H 97 01/27/17 11:33 01/27/17 11:33 01/27/17 11:33 01/27/17 11:58 01/27/17 11:33 Laboratory Results 01/27/17 05:45 01/27/17 05:45 01/26/17 01/27/17 01/28/17 05:59 05:59 05:59 Intake Total 2736 725 Output Total 252 400 Balance 2484 725 -400 - Physical Exam Constitutional: no apparent distress, appears nourished, not in pain Cardiovascular: regular rate and rhythym, no murmur, rub, or gallop Respiratory: no respiratory distress, no rales or rhonchi, clear to auscultation Gastrointestinal: normoactive bowel sounds, soft, non-tender abdomen, no palpable masses Skin: no rashes or abrasions, no fluctuance, no induration Neurologic: AAOx3, sensation intact bilaterally Psychiatric: interacting appropriately, not anxious, not encephalopathic, thought process linear, other (mental status greatly improved today, neARING NORMAL) ICD10 Worksheet Patient Problems: Problems Problem Status Onset Altered mental status Acute Clostridium difficile infection Acute ~01/24/17 Hyperglycemia Acute
--- NOTE | 2017-01-27 16:48 | ASMTCMCOM ---
CM Note CM Note Notes: Received call from pt's brother Suman, he wanted to know what pt's "true diagnosis" is. want's to know if we did MRI on brain. He states he spoke w/her this morning and she still sounds confused. Brother asked CM repeated questions about medical status, diagnosis and medications, advised brother that his questions would be better answered by RN or MD, each time he stated he already spoke w/them. He then asked if he could speak w/ patient rep, advised brother that I would have them call him, CM left message for pt rep to call brother. Date Signed: 01/27/2017 04:48 PM Electronically Signed By:Romy Pizano RN
[2017-01-27] MEDS: HYDROmorphONE/DILAUDID 4 MG TAB PO PRN (17:22)
[2017-01-27 18:06] LABS: POTASSIUM 2.8 mEq/L (3.5-5.2)
[2017-01-28] MEDS: HYDROmorphONE/DILAUDID 4 MG TAB PO PRN ×4 (02:19→17:56)
[2017-01-28] MEDS: ONDANSETRON 4 MG/2 ML VIAL IVP PRN (05:29)
[2017-01-28] MEDS: VANCOMYCIN 125 MG/2.5 ML UDL PO SCH ×4 (05:29→21:14)
[2017-01-28 05:45] LABS: % IMMATURE GRANULYOCYTES 0.3 % (0.0-1.1); ABSOLUTE IMMATURE GRANULOCYTES 0.03 10^3/uL (0.00-0.10); ADD DIFF? NO; ADD MORPH? NO; ADD SCAN? NO; ATYPICAL LYMPHOCYTE FLAG 0 (0-99); FRAGMENT RBC FLAG 0 (0-99); HEMATOCRIT 38.1 % (38.0-47.0); HEMOGLOBIN 13.8 g/dL (12.6-16.3); LEFT SHIFT FLG 0 (0-99); LIPEMIA HEMOLYSIS FLAG 90 (0-99); MEAN CELL HEMOGLOBIN 30.9 pg (27.9-34.1); MEAN CELL HEMOGLOBIN CONCENTR. 36.2 g/dL (32.4-36.7); MEAN CELL VOLUME 85.2 fL (81.5-99.8); MEAN PLATELET VOLUME 9.7 fL (8.7-11.7); PLATELET CLUMPS FLAG 0 (0-99); PLATELET COUNT 158 10^3/uL (150-400); RED BLOOD CELL COUNT 4.47 10^6/uL (4.18-5.33); RED CELL DISTRIBUTION WIDTH 15.5 % (11.5-15.2)
[2017-01-28 06:03] LABS: CARBON DIOXIDE 23 mEq/l (22-31); CHLORIDE 109 mEq/L (97-110); POTASSIUM 3.6 mEq/L (3.5-5.2)
[2017-01-28 06:04] LABS: CALCIUM 7.5 mg/dL (8.5-10.4); CREATININE 0.6 mg/dL (0.6-1.0); GLOMERULAR FILTRATION RATE > 60; GLUCOSE 47 mg/dL (70-100)
[2017-01-28] MEDS: INSULIN GLARGINE 100 UNITS/ML SYRINGE SC SCH (08:49)
[2017-01-28] MEDS: LIPASE 12,000/AMYLASE/PROTEASE (CREON) 1 CAP PO SCH ×3 (08:49→17:56)
[2017-01-28] MEDS: MIRTAZAPINE 15 MG TAB PO SCH (08:49)
[2017-01-28] MEDS: CALCITRIOL 0.25 MCG CAP PO SCH (08:49)
[2017-01-28] MEDS: ENOXAPARIN 40 MG/0.4 ML SYR SC SCH (08:49)
[2017-01-28] MEDS: PRAVASTATIN SODIUM 20 MG TAB PO SCH (08:49)
[2017-01-28] MEDS: INSULIN LISPRO 100 UNIT/ML SC SCH ×4 (08:56→21:14)
[2017-01-28] MEDS: LOSARTAN POTASSIUM 50 MG TAB PO SCH (08:57)
[2017-01-28] MEDS: Umeclidinium Brm/Vilanterol Tr [Anoro Ellipta 62.5-25 Mcg Inh IH SCH (09:52)
[2017-01-28] MEDS: ALBUTEROL 60 PUFFS/8 GM MDI IH PRN (09:53)
--- NOTE | 2017-01-28 10:15 | ASMTCMCOM ---
CM Note CM Note Notes: Spoke w/pt this am, she is appropriate and clear in her conversation and agrees w/dc poc, although still having diarrhea. will dc with niece and then fly back to [place], wants to be back with her sons. Notified her that her brother called yesterday, she gives permission to speak with him and all family. CM available for any changes. Date Signed: 01/28/2017 10:15 AM Electronically Signed By:Romy Pizano RN
[2017-01-28] MEDS ORDERED: POTASSIUM CL 10 MEQ TAB PO ONE (10:17)
[2017-01-28] MEDS: ONDANSETRON DISINTEGRATING 4 MG TAB PO PRN ×3 (12:10→21:19)
--- NOTE | 2017-01-28 17:45 | ASMTCMCOM ---
CM Note CM Note Notes: Spoke w/ re; pt's low scoring cog eval. NAPPER RUNNER recommending snf, discusses with pt, niece Zara and both sons on speaker phone while in room. Pt politely declines rehab and prefers to stick to the plan of niece taking her to the plane(niece works for airline) and son will pick her up at airport in [place]. Family is all in agreement w/this plan. CM available for any changes. Date Signed: 01/28/2017 05:44 PM Electronically Signed By:Romy Pizano RN
--- NOTE | 2017-01-28 17:54 | HOSPPROG ---
Hospitalist Progress Note Assessment/Plan: * C Diff -PO Vanco * Metabolic encephalopathy - due to infection -improving slowly -clinically improved dramatically, but still tested very poorly on cog eval with ST * DM 1 -Lantus * Pancreatic insufficiency s/p pancreatectomy -Creon with meals * COPD with ongoing tobacco dependence -okay room air * Chronic pain with continuous narcotic dependency -resume home meds Subjective: 3 massive BM already this am. Appetite starting to slightly improve Objective: Vital Signs Temp Pulse Resp BP Pulse Ox 36.9 C 68 16 112/64 93 01/28/17 15:09 01/28/17 15:09 01/28/17 15:09 01/28/17 15:09 01/28/17 15:09 Laboratory Results 01/28/17 05:30 01/28/17 05:30 01/27/17 01/28/17 01/29/17 05:59 05:59 05:59 Intake Total 725 1492 Output Total 650 Balance 725 842 - Physical Exam Constitutional: no apparent distress, appears nourished, not in pain Cardiovascular: regular rate and rhythym, no murmur, rub, or gallop Respiratory: no respiratory distress, no rales or rhonchi, clear to auscultation Gastrointestinal: normoactive bowel sounds, soft, non-tender abdomen, no palpable masses Skin: no rashes or abrasions, no fluctuance, no induration Neurologic: AAOx3, sensation intact bilaterally Psychiatric: interacting appropriately, not anxious, not encephalopathic, thought process linear ICD10 Worksheet Patient Problems: Problems Problem Status Onset Altered mental status Acute Clostridium difficile infection Acute ~01/24/17 Hyperglycemia Acute
[2017-01-28 18:29] LABS: POTASSIUM 4.1 mEq/L (3.5-5.2)
[2017-01-28 19:17] LABS: ANION GAP 11 mEq/L (8-16); SODIUM 143 mEq/L (134-144)
[2017-01-28] MEDS: PREGABALIN 75 MG CAP PO PRN (21:15)
[2017-01-29] MEDS: HYDROmorphONE/DILAUDID 4 MG TAB PO PRN ×4 (00:03→21:13)
[2017-01-29] MEDS: ONDANSETRON DISINTEGRATING 4 MG TAB PO PRN ×4 (05:24→21:13)
[2017-01-29] MEDS: VANCOMYCIN 125 MG/2.5 ML UDL PO SCH ×4 (05:24→21:14)
[2017-01-29 05:38] LABS: % IMMATURE GRANULYOCYTES 0.2 % (0.0-1.1); ABSOLUTE IMMATURE GRANULOCYTES 0.02 10^3/uL (0.00-0.10); ADD DIFF? NO; ADD MORPH? NO; ADD SCAN? NO; ATYPICAL LYMPHOCYTE FLAG 10 (0-99); FRAGMENT RBC FLAG 0 (0-99); HEMATOCRIT 39.2 % (38.0-47.0); HEMOGLOBIN 13.6 g/dL (12.6-16.3); LEFT SHIFT FLG 0 (0-99); LIPEMIA HEMOLYSIS FLAG 90 (0-99); MEAN CELL HEMOGLOBIN 30.5 pg (27.9-34.1); MEAN CELL HEMOGLOBIN CONCENTR. 34.7 g/dL (32.4-36.7); MEAN CELL VOLUME 87.9 fL (81.5-99.8); MEAN PLATELET VOLUME 10.2 fL (8.7-11.7); PLATELET CLUMPS FLAG 0 (0-99); PLATELET COUNT 153 10^3/uL (150-400); RED BLOOD CELL COUNT 4.46 10^6/uL (4.18-5.33); RED CELL DISTRIBUTION WIDTH 15.9 % (11.5-15.2)
[2017-01-29 05:51] LABS: ANION GAP 6 mEq/L (8-16); CALCIUM 7.5 mg/dL (8.5-10.4); CARBON DIOXIDE 25 mEq/l (22-31); CHLORIDE 109 mEq/L (97-110); CREATININE 0.7 mg/dL (0.6-1.0); GLOMERULAR FILTRATION RATE > 60; GLUCOSE 62 mg/dL (70-100); POTASSIUM 3.6 mEq/L (3.5-5.2); SODIUM 140 mEq/L (134-144)
[2017-01-29] MEDS ORDERED: POTASSIUM CL 10 MEQ TAB PO ONE (07:34)
[2017-01-29] MEDS: INSULIN LISPRO 100 UNIT/ML SC SCH ×4 (08:20→21:14)
[2017-01-29] MEDS: MIRTAZAPINE 15 MG TAB PO SCH (08:25)
[2017-01-29] MEDS: LIPASE 12,000/AMYLASE/PROTEASE (CREON) 1 CAP PO SCH ×3 (08:26→15:36)
[2017-01-29] MEDS: PRAVASTATIN SODIUM 20 MG TAB PO SCH (08:26)
[2017-01-29] MEDS: LOSARTAN POTASSIUM 50 MG TAB PO SCH (08:26)
[2017-01-29] MEDS: ENOXAPARIN 40 MG/0.4 ML SYR SC SCH (08:26)
[2017-01-29] MEDS: CALCITRIOL 0.25 MCG CAP PO SCH (08:26)
[2017-01-29] MEDS: INSULIN GLARGINE 100 UNITS/ML SYRINGE SC SCH (08:34)
--- NOTE | 2017-01-29 09:55 | HOSPPROG ---
Hospitalist Progress Note Assessment/Plan: Patient is a 76-year-old female who is visiting from [place]. She was brought to the emergency room January 23 because she was unresponsive. She has a history of type 1 diabetes, Pancreatectomy as well as C OPD. On arrival her blood sugar was 500. Today is my 1st encounter with the patient. Chart reviewed. * C Diff -PO Vanco/start 01/25/17 -will need 14 days of treatment. * Metabolic encephalopathy - due to infection -improving slowly -clinically improved dramatically, but still tested very poorly on cog eval with ST -her niece is arranging for her to get her flight back home * DM 1 -Lantus * malnutrition with a BMI of 20 * Pancreatic insufficiency s/p pancreatectomy -Creon with meals * COPD with ongoing tobacco dependence -okay room air * Chronic pain with continuous narcotic dependency -resume home meds *Plan: send script in as soon as possible so she can continue treatment for c diff Subjective: Yael is feeling well/ no complaints/ no diarrhea. Objective: Vital Signs Temp Pulse Resp BP Pulse Ox 36.7 C 56 L 14 147/65 H 96 01/29/17 07:54 01/29/17 07:54 01/29/17 07:54 01/29/17 07:54 01/29/17 07:54 Laboratory Results 01/29/17 05:15 01/29/17 05:15 01/28/17 01/29/17 01/30/17 05:59 05:59 05:59 Intake Total 1492 500 Output Total 650 2 Balance 842 498 - Physical Exam Constitutional: no apparent distress, appears nourished, not in pain, other ( thin) Eyes: PERRL Ears, Nose, Mouth, Throat: hearing normal Cardiovascular: regular rate and rhythym Respiratory: no respiratory distress Gastrointestinal: normoactive bowel sounds Skin: warm, normal color Musculoskeletal: full muscle strength Neurologic: AAOx3 Psychiatric: interacting appropriately, not anxious, not encephalopathic ICD10 Worksheet Patient Problems: Problems Problem Status Onset Clostridium difficile infection Acute ~01/24/17 Altered mental status Acute Hyperglycemia Acute
[2017-01-29] MEDS: Umeclidinium Brm/Vilanterol Tr [Anoro Ellipta 62.5-25 Mcg Inh IH SCH (10:09)
[2017-01-29] MEDS: ALBUTEROL 60 PUFFS/8 GM MDI IH PRN (10:16)
--- NOTE | 2017-01-29 16:23 | ASMTCMCOM ---
CM Note CM Note Notes: Reviewed chart; spoke w/ ADALID Herr; Meredith Johnson NP re: d/c poc, pt's progress. Pt to discharge today w/ niece to take flight back to [place]. Niece unable to arrange flight details for Tuesday01/29/17. Pt is scheduled for flight 01/30/17 at 1345. Niece to transport pt from hospital to [facility] w/ w/c assist to concourse for flight home to [place]. Pt will be met in [place] by her 2 sons, who will then assist her in getting home. All family aware of PT/OT/RN/MD recs for SNF; pt declined. IM signed. Pt to f/u as directed. CM avail for any further issues or concerns. Date Signed: 01/29/2017 04:22 PM Electronically Signed By:Alena Bermeo RN
[2017-01-29 19:55] LABS: POTASSIUM 4.4 mEq/L (3.5-5.2)
[2017-01-30] MEDS: ONDANSETRON DISINTEGRATING 4 MG TAB PO PRN (05:17)
[2017-01-30] MEDS: VANCOMYCIN 125 MG/2.5 ML UDL PO SCH (05:17)
[2017-01-30 05:54] LABS: POTASSIUM 4.4 mEq/L (3.5-5.2)
[2017-01-30 07:34] VITALS: BP 163/67; PULSE 66; RESP 14; TEMP 98.1; O2SAT 95
[2017-01-30] MEDS: INSULIN GLARGINE 100 UNITS/ML SYRINGE SC SCH (07:48)
[2017-01-30] MEDS: MIRTAZAPINE 15 MG TAB PO SCH (07:48)
[2017-01-30] MEDS: INSULIN LISPRO 100 UNIT/ML SC SCH (07:48)
[2017-01-30] MEDS: LIPASE 12,000/AMYLASE/PROTEASE (CREON) 1 CAP PO SCH (07:49)
[2017-01-30] MEDS: CALCITRIOL 0.25 MCG CAP PO SCH (07:49)
[2017-01-30] MEDS: HYDROmorphONE/DILAUDID 4 MG TAB PO PRN (07:49)
[2017-01-30] MEDS: LOSARTAN POTASSIUM 50 MG TAB PO SCH (07:49)
[2017-01-30] MEDS: PRAVASTATIN SODIUM 20 MG TAB PO SCH (07:49)
[2017-01-30] MEDS: ENOXAPARIN 40 MG/0.4 ML SYR SC SCH (07:59)
--- NOTE | 2017-01-30 08:34 | HOSPPROG ---
Hospitalist Progress Note Assessment/Plan: Patient is a 76-year-old female who is visiting from [place]. She was brought to the emergency room January 23 because she was unresponsive. She has a history of type 1 diabetes, Pancreatectomy as well as C OPD. On arrival her blood sugar was 500. Today is my 1st encounter with the patient. Chart reviewed. * C Diff -PO Vanco/start 01/25/17 -will need 14 days of treatment. -script given yesterday to fill * Metabolic encephalopathy - due to infection -improving slowly -clinically improved dramatically, but still tested very poorly on cog eval with ST -her niece is arranging for her to get her flight back home * DM 1 -Lantus * malnutrition with a BMI of 20 * Pancreatic insufficiency s/p pancreatectomy -Creon with meals * COPD with ongoing tobacco dependence -okay room air * Chronic pain with continuous narcotic dependency -resume home meds *Plan: dc back to home/ patient has declined SNF/ niece arranging transport for the patient to return home Subjective: Yael says she had some diarrhea this morning. Objective: Vital Signs Temp Pulse Resp BP Pulse Ox 36.7 C 66 14 163/67 H 95 01/30/17 07:28 01/30/17 07:28 01/30/17 07:28 01/30/17 07:28 01/30/17 07:28 Laboratory Results 01/29/17 05:15 01/30/17 05:23 01/29/17 01/30/17 01/31/17 05:59 05:59 05:59 Intake Total 500 450 Output Total 2 Balance 498 450 - Physical Exam Constitutional: no apparent distress, other (thin) Ears, Nose, Mouth, Throat: hearing normal Skin: warm Musculoskeletal: full muscle strength Neurologic: AAOx3 Psychiatric: poor insight, poor memory ICD10 Worksheet Patient Problems: Problems Problem Status Onset Altered mental status Acute Clostridium difficile infection Acute ~01/24/17 Hyperglycemia Acute
--- NOTE | 2017-01-30 12:22 | GDS ---
[f rep st] DISCHARGE SUMMARY DISCHARGE DIAGNOSES: 1. Clostridium difficile colitis. 2. Metabolic encephalopathy. 3. Diabetes type 1. 4. Malnutrition with a BMI of 20. 5. Pancreatic insufficiency status post pancreatomy. 6. Chronic obstructive pulmonary disease with ongoing tobacco dependence. 7. Chronic pain with continuous narcotic dependency. HISTORY OF PRESENT ILLNESS: Briefly, the patient is a 76-year-old female. She is visiting from the [facility]. She was brought to the emergency room on January 23 because she was unresponsive. She has a history of type 1 diabetes as well as COPD. On arrival, her blood sugar was 500. She had a CT of her head performed which showed no acute findings. She subsequently had a brain MRI performed for further evaluation. This was very limited because she was very combative. It showed diffuse atrophy and presumed small-vessel ischemic disease with no definite hemorrhage, acute ischemia or mass effect identified. During her stay, it was noted that she had significant diarrhea. She had a PCR GI tract performed which showed Clostridium difficile. She was treated with oral vancomycin. She will be flying back to the [place] area today. Recommendation was for her to go to a jail facility because she has some significant cognitive deficits that are chronic. The patient declined. She was discharged home with her niece helping arrange for her to be transported back to home. HOSPITAL COURSE: 1. C diff colitis. Will continue the vancomycin for 9 more days and further follow up with her primary care provider. 2. Metabolic encephalopathy. She clinically improved, but she tested very poorly on her cognitive evaluation with speech therapy. She will be dropped off and picked up and watched closely by family members. Suspect some of her cognitive issues are related to the narcotics, benzodiazepine and Lyrica . 3. Diabetes type 1 on Lantus. 4. Malnutrition. She has a BMI of 20. 5. Pancreatic insufficiency status post pancreectomy. She is on Creon with meals. 6. COPD. She continues to smoke. Her O2 levels are stable on room air. 7. Chronic pain with continuous narcotic dependency. Home medications have been resumed. DISCHARGE CONDITION: Stable. Blood pressure 137/68, heart rate is 64, respiratory rate is 18, O2 saturation on room air 99%. Temperature is 36.6 Celsius. MEDICATIONS AT DISCHARGE: Please see the EMR. DISCHARGE INSTRUCTIONS: 1. Recommend she follow up with her PCP as soon she returns home. 2. To continue the oral vancomycin. If the diarrhea persists, she may need longer treatment. TIME SPENT: Greater than 30 minutes discharging and coordinating patient's care. /[id number]/MODL MTDHeber
--- NOTE | 2017-01-30 13:14 | ASMTCMCOM ---
CM Note CM Note Notes: Reviewed chart, spoke w/ ADALID Herr. Per RN, pt discharged independently today w/ family support. Pt's niece instructed to filler picker Vanco prescription, prior to taking pt to [place] for 1345 flight home. IM prev signed. Pt to f/u as directed. See prior CM notes for entire d/c plan. CM avail for any further issues or concerns. Date Signed: 01/30/2017 01:14 PM Electronically Signed By:Alena Bermeo RN
--- NOTE | 2017-01-30 13:17 | ASDISCHSUM ---
Discharge Information Plan Status:Home with No Needs Medically Cleared to Leave:01/30/2017 Discharge Date:01/30/2017 09:00 AM CM D/C Disposition:Home, Routine, Self-Care ADT D/C Disposition:Home, Routine, Self-Care Projected Discharge Date:01/29/2017 11:00 AM Transportation at D/C:Family Discharge Delay Reason: Follow-Up Date:01/29/2017 11:00 AM Discharge Slot:1 - 8:01 am - 12:00 noon Final Diagnosis:Cdiff, metabolic encephalopathy, DM 1, malnutrition, COPD w/ tobacco dependence, tillman creatic insuff, chronic pain w/ narc dependency Placement Information Referral Type:*Intermediate/SNF Referral ID:[id number] Provider Name: Address 1: Phone Number: Address 2: Fax Number: City: Selection Factors:Patient/Family Choice State: Patient Contact Information Contact Name:JHONNY Relationship: Address: Home Phone: Work Phone: City: Alternate Phone: [facility]/Zip Code: Email: Financial Information Financial Class: Primary Plan Desc:MEDICARE INPATIENT Primary Plan Number:[id number] Secondary Plan Desc:MEDICA Secondary Plan Number:[id number] Assessment Information [facility] CM Progress Note CM Note CM Note Notes: 76 year old female from [facility] in [place], admitted for AMS, Hyperglycemia. Patient has a hx of DM-1, Chronic pain-narc dependent, COPD, Malnutrition. Concern that patient might have taken too many or confused medications and became unresponsive which then lead to her admission. CM to follow for discharge needs. Date Signed: 01/24/2017 11:46 AM Electronically Signed By:Venice Gonzalez LCSW [facility] CM Progress Note CM Note CM Note Notes: Spoke w/RN, pt not feeling well, has Cdiff and some mild confusion. CM to speak w/niece Zara [phone] about POC, still a few days out from [place] w/f. Date Signed: 01/26/2017 03:52 PM Electronically Signed By:Romy Pizano RN [facility] Progress Note CM Note CM Note Notes: Spoke w/ and niece via phone re; poc. Pt will dc w/niece when medicallly stable and ready to fly, take her to airport and get her to plane via wheelchair and family will pick her up in [place]. Will need form for flight that she missed. CM available for any changes Date Signed: 01/27/2017 10:35 AM Electronically Signed By:Romy Pizano RN [facility] Progress Note CM Note CM Note Notes: Received call from pt's brother Suman, he wanted to know what pt's "true diagnosis" is. want's to know if we did MRI on brain. He states he spoke w/her this morning and she still sounds confused. Brother asked CM repeated questions about medical status, diagnosis and medications, advised brother that his questions would be better answered by RN or MD, each time he stated he already spoke w/them. He then asked if he could speak w/ patient rep, advised brother that I would have them call him, CM left message for pt rep to call brother. Date Signed: 01/27/2017 04:48 PM Electronically Signed By:Romy Pizano RN [facility] Progress Note CM Note CM Note Notes: Spoke w/pt this am, she is appropriate and clear in her conversation and agrees w/dc poc, although still having diarrhea. will dc with niana and then fly back to [place], wants to be back with her sons. Notified her that her brother called yesterday, she gives permission to speak with him and all family. CM available for any changes. Date Signed: 01/28/2017 10:15 AM Electronically Signed By:Romy Pizano RN [facility] Progress Note CM Note CM Note Notes: Spoke w/ re; pt's low scoring cog eval. SHIFT SUPERVISOR MELTING recommending snf, discusses with pt, britni Zuñiga and both sons on speaker phone while in room. Pt politely declines rehab and prefers to stick to the plan of niece taking her to the plane(niece works for airline) and son will pick her up at airport in [place]. Family is all in agreement w/this plan. CM available for any changes. Date Signed: 01/28/2017 05:44 PM Electronically Signed By:Romy Pizano RN [facility] CM Progress Note CM Note CM Note Notes: Reviewed chart; spoke david Herr RN; Meredith Johnson NP re: d/c poc, pt's progress. Pt to discharge today w/ niece to take flight back to [place]. Niece unable to arrange flight details for Tuesday01/29/17. Pt is scheduled for flight 01/30/17 at 1345. Niece to transport pt from hospital to [facility] w/ w/c assist to [facility] for flight home to [place]. Pt will be met in [place] by her 2 sons, who will then assist her in getting home. All family aware of PT/OT/RN/MD recs for SNF; pt declined. IM signed. Pt to f/u as directed. CM avail for any further issues or concerns. Date Signed: 01/29/2017 04:22 PM Electronically Signed By:Alena Bermeo RN [facility] CM Progress Note CM Note CM Note Notes: Reviewed chart, spoke david Herr RN. Per RN, pt discharged independently today w/ family support. Pt's niece instructed to poultry picker Vanco prescription, prior to taking pt to [facility] for 1345 flight home. IM prev signed. Pt to f/u as directed. See prior CM notes for entire d/c plan. CM avail for any further issues or concerns. Date Signed: 01/30/2017 01:14 PM Electronically Signed By:Alena Bermeo RN Intervention Information Intervention Type:*IM-Signed Date of Service:01/29/2017 01:15 PM Patient Type:Inpatient Staff Member:ADALID Bermeo Taylor Hours: Discipline: Severity: Comment:
== END 2017-01-30 09:00 | disposition home or self-care (01) | DRG 637 ==
LOC: F2N 17:34 → F3E 01-24 16:26
PROVIDERS: ADMIT Internal Medicine; ATTEND Internal Medicine
PROC: 02H633Z Insertion of Infusion Device into Right Atrium, Percutaneous Approach (ICD-10-PCS; principal; 2017-01-23)
DX: E10.65 Type 1 diabetes mellitus with hyperglycemia (principal); G93.41 Metabolic encephalopathy; A04.72 Enterocolitis due to Clostridium difficile, not specified as recurrent; F11.20 Opioid dependence, uncomplicated; E46 Unspecified protein-calorie malnutrition; Z68.20 Body mass index [BMI] 20.0-20.9, adult; K86.89 Other specified diseases of pancreas; J44.9 Chronic obstructive pulmonary disease, unspecified; F17.200 Nicotine dependence, unspecified, uncomplicated; G89.29 Other chronic pain; Z79.4 Long term (current) use of insulin; L89.510 Pressure ulcer of right ankle, unstageable
CPT/HCPCS: 80305; 82947-QW; 92523-GN; 92526-GN; 92610-GN; 97116-GP; 97162-GP; 97166-GO; 97530-GO; 97530-GP; 97535-GO; C1751; G8978-GP-CI; G8978-GP-CL; G8979-GP-CI; G8980-GP-CI; G8987-GO-CK; G8988-GO-CI; G9168-GN-CK; G9169-GN-CI; J0360; J1650; J1815; J2060; J2310; J2405; J2550